=== PATIENT | male | born 1985 | race Caucasian/White ===

== ENCOUNTER 2018-06-14 14:45 | Emergency (ER) | payer OTHER ==
[2018-06-14 14:46] VITALS: BMI 26.6
[2018-06-14 15:32] VITALS: BP 112/70; PULSE 108; RESP 19; TEMP 98.7; O2SAT 96
--- NOTE | 2018-06-14 16:18 | ED PDOC ---
HPI: CCC, URI, Sore Throat Time Seen by Provider: 06/14/18 15:46 Chief Complaint (Nursing): ENT Problem Chief Complaint (Provider): continued left ear pain History Per: Patient History/Exam Limitations: no limitations Onset/Duration Of Symptoms: Days Current Symptoms Are (Timing): Still Present Additional Complaint(s): 33 yo male with no medical problems presents with left ear pain x 3 days. Pt was seen by PMD yesterday and given motrin 800mg (which he lat took at 1pm) and amoxicillin (which he took 2 tabs, last night and this morning). Pt reports continued pain. Pt denies fever/chills. Denies change in hearing. Past Medical History Reviewed: Historical Data, Nursing Documentation, Vital Signs Vital Signs: Last Vital Signs Temp 98.7 F 06/14/18 15:29 Pulse 108 H 06/14/18 15:29 Resp 19 06/14/18 15:29 BP 112/70 06/14/18 15:29 Pulse Ox 96 06/14/18 15:29 - Medical History PMH: No Chronic Diseases - Surgical History Surgical History: No Surg Hx - Family History Family History: States: Unknown Family Hx - Living Arrangements Living Arrangements: With Family - Social History Current smoker - smoking cessation education provided: No - Immunization History Hx Tetanus Toxoid Vaccination: No Hx Influenza Vaccination: No Hx Pneumococcal Vaccination: No - Home Medications Home Medications: Ambulatory Orders Medication Instructions Recorded Ibuprofen [Motrin Tab] 1 tab PO PRN PRN 03/20/15 Naproxen [Naprosyn] 500 mg PO BID #20 tab 04/24/15 traMADol/Acetaminophen [Ultracet 1 tab PO Q8 PRN #20 tab 04/24/15 325 MG-37.5 MG] Ciprofloxacin/Dexamethasone 4 drop .ROUTE BID #1 bottle 06/14/18 [Ciprodex 0.3%-0.1% 7.5 Ml] - Allergies Allergies/Adverse Reactions: Allergies Allergy/AdvReac Type Severity Reaction Status Date / Time No Known Allergies Allergy Verified 04/24/15 13:20 Review of Systems ROS Statement: Except As Marked, All Systems Reviewed And Found Negative Constitutional: Negative for: Fever, Chills ENT: Positive for: Ear Pain Physical Exam - Reviewed Nursing Documentation Reviewed: Yes Vital Signs Reviewed: Yes - Physical Exam Appears: Positive for: Well, Non-toxic, No Acute Distress Head Exam: Positive for: ATRAUMATIC, NORMAL INSPECTION, NORMOCEPHALIC Skin: Positive for: Normal Color, Warm, DRY Eye Exam: Positive for: Normal appearance ENT: Positive for: Other ((+) pinna pull and tragel tug on the left, (+) edema of the external auditory canalce left ). Negative for: Normal ENT Inspection Neck: Positive for: Normal, Painless ROM Respiratory: Negative for: Accessory Muscle Use, Respiratory Distress Gastrointestinal/Abdominal: Positive for: Normal Exam, Soft Back: Positive for: Normal Inspection Extremity: Positive for: Normal ROM Neurologic/Psych: Positive for: Alert, Oriented - ECG O2 Sat by Pulse Oximetry: 96 Disposition - Clinical Impression Clinical Impression: Otitis externa - Patient ED Disposition Is Patient to be Admitted: No - Disposition Referrals: Marquise Gong MD [Primary Care Provider] - Disposition: Routine/Home Disposition Time: 16:19 Condition: STABLE Prescriptions: Ciprofloxacin/Dexamethasone [Ciprodex 0.3%-0.1% 7.5 Ml] 4 drop .ROUTE BID #1 bottle Instructions: Outer Ear Infection
== END 2018-06-14 16:54 | disposition home or self-care (01) ==
LOC: H.ER 14:45 → SUPCPDRO 14:45 → H.ER 16:54
DX: H60.92 Unspecified otitis externa, left ear (principal)

== ENCOUNTER 2018-10-29 07:33 | Emergency (ER) | payer OTHER ==
[2018-10-29 07:39] VITALS: BMI 31.9
[2018-10-29 07:40] VITALS: BP 124/74; PULSE 87; RESP 20; TEMP 98.6
[2018-10-29 07:59] VITALS: O2SAT 98
[2018-10-29] MEDS ORDERED: guaiFENesin-DM 600-30 mg ER Tab PO STA (08:22)
--- NOTE | 2018-10-29 08:22 | ED PDOC ---
HPI: CCC, URI, Sore Throat Time Seen by Provider: 10/29/18 08:17 Chief Complaint (Nursing): ENT Problem Additional Complaint(s): 33 yo male patient w/o relevant PMH present to the ER complaining of sore throat since 3 days ago, associated subjective fever and dry cough since last night. Patient did not take temperature at home. Otherwise he denies nausea, vomiting, sob, abdominal or chest pain, no bodyaches, diarrhea. Patient denies also denies sick contacts or recent travel outside country. PMD: Dr Marquise Gong Past Medical History Vital Signs: Last Vital Signs Temp 98.6 F 10/29/18 07:39 Pulse 87 10/29/18 07:39 Resp 20 10/29/18 07:39 BP 124/74 10/29/18 07:39 Pulse Ox 98 10/29/18 07:56 - Medical History PMH: No Chronic Diseases - Surgical History Surgical History: No Surg Hx - Family History Family History: States: Unknown Family Hx - Social History Current smoker - smoking cessation education provided: No Alcohol: None Drugs: Denies - Immunization History Hx Tetanus Toxoid Vaccination: No Hx Influenza Vaccination: No Hx Pneumococcal Vaccination: No - Home Medications Home Medications: Ambulatory Orders Medication Instructions Recorded Ibuprofen [Motrin Tab] 1 tab PO PRN PRN 03/20/15 Naproxen [Naprosyn] 500 mg PO BID #20 tab 04/24/15 traMADol/Acetaminophen [Ultracet 1 tab PO Q8 PRN #20 tab 04/24/15 325 MG-37.5 MG] Ciprofloxacin/Dexamethasone 4 drop .ROUTE BID #1 bottle 06/14/18 [Ciprodex 0.3%-0.1% 7.5 Ml] Ibuprofen [Ibu] 400 mg PO Q6H 7 Days #30 tablet 10/29/18 Phenylephrine/Dm/Acetaminop/GG 177 ml PO Q4H #1 liquid 10/29/18 [Mucinex Epid-Ztl-Otcixrysrf Lq] - Allergies Allergies/Adverse Reactions: Allergies Allergy/AdvReac Type Severity Reaction Status Date / Time No Known Allergies Allergy Verified 04/24/15 13:20 Review of Systems ROS Statement: Except As Marked, All Systems Reviewed And Found Negative Physical Exam - Reviewed Vital Signs Reviewed: Yes - Physical Exam Appears: Positive for: No Acute Distress Head Exam: Positive for: NORMAL INSPECTION Skin: Negative for: Rash ENT: Negative for: Pharyngeal Erythema, Tonsillar Exudate, Tonsillar Swelling Cardiovascular/Chest: Positive for: Regular Rate, Rhythm. Negative for: Tachycardia Respiratory: Positive for: Normal Breath Sounds. Negative for: Rales, Wheezing Gastrointestinal/Abdominal: Positive for: Soft. Negative for: Tenderness, Distended Neurologic/Psych: Positive for: lightout examiner II-XII, Oriented - ECG O2 Sat by Pulse Oximetry: 98 - Progress ED Course And Treament: Afebrile Ibuprofen 400 mg once for pain Mucinex 1 tab PO once Disposition - Clinical Impression Clinical Impression: Upper respiratory infection, viral, Throat pain - Patient ED Disposition Is Patient to be Admitted: No - Disposition Referrals: Marquise Gong MD [Staff Provider] - Disposition: Routine/Home Disposition Time: 08:18 Condition: STABLE Additional Instructions: f/u with Dr Gong in 3 days Drink plenty of fluids Ibuprofen q6h for pain and fever Mucinex PO for cough Return if worsening or new sx. Prescriptions: Ibuprofen [Ibu] 400 mg PO Q6H 7 Days #30 tablet Phenylephrine/Dm/Acetaminop/GG [Mucinex Uqmp-Zrh-Eseakjnqgp Lq] 177 ml PO Q4H #1 liquid Instructions: Sore Throat, Adult (DC), Viral Upper Respiratory Infection, Adult (DC) Forms: [employer] (Kazakh)
== END 2018-10-29 08:50 | disposition home or self-care (01) ==
LOC: H.ER 07:33
DX: J02.9 Acute pharyngitis, unspecified (principal); J06.9 Acute upper respiratory infection, unspecified

== ENCOUNTER 2018-12-30 01:02 | Emergency (ER) | payer SELFPAY ==
[2018-12-30 01:02] VITALS: BMI 31.9
[2018-12-30 01:24] VITALS: BP 114/73; PULSE 80; RESP 16; TEMP 98.7; O2SAT 98
--- NOTE | 2018-12-30 02:46 | ED PDOC ---
HPI: General Adult Time Seen by Provider: 12/30/18 02:05 Chief Complaint (Nursing): ENT Problem Chief Complaint (Provider): blood in mouth History Per: Patient History/Exam Limitations: no limitations Onset/Duration Of Symptoms: Days (2) Current Symptoms Are (Timing): Still Present Additional Complaint(s): 33 y/o male presents for evaluation of "blood in mouth" x 2 days. Patient states he noticed blood on the roof of his mouth today. Denies known injury, pain, difficulty speaking/swallowing, sore throat. Past Medical History Reviewed: Historical Data, Nursing Documentation, Vital Signs Vital Signs: Last Vital Signs Temp 98.7 F 12/30/18 01:22 Pulse 80 12/30/18 01:22 Resp 16 12/30/18 01:22 BP 114/73 12/30/18 01:22 Pulse Ox 98 12/30/18 01:22 - Medical History PMH: No Chronic Diseases - Surgical History Surgical History: Hernia Repair - Family History Family History: States: Unknown Family Hx - Immunization History Hx Tetanus Toxoid Vaccination: No Hx Influenza Vaccination: No Hx Pneumococcal Vaccination: No - Home Medications Home Medications: Ambulatory Orders Medication Instructions Recorded Ibuprofen [Motrin Tab] 1 tab PO PRN PRN 03/20/15 Naproxen [Naprosyn] 500 mg PO BID #20 tab 04/24/15 traMADol/Acetaminophen [Ultracet 1 tab PO Q8 PRN #20 tab 04/24/15 325 MG-37.5 MG] Ciprofloxacin/Dexamethasone 4 drop .ROUTE BID #1 bottle 06/14/18 [Ciprodex 0.3%-0.1% 7.5 Ml] Ibuprofen [Ibu] 400 mg PO Q6H 7 Days #30 tablet 10/29/18 Phenylephrine/Dm/Acetaminop/GG 177 ml PO Q4H #1 liquid 10/29/18 [Mucinex Wmcu-Tzu-Sfvjavonoy Lq] - Allergies Allergies/Adverse Reactions: Allergies Allergy/AdvReac Type Severity Reaction Status Date / Time No Known Allergies Allergy Verified 04/24/15 13:20 Review of Systems ROS Statement: Except As Marked, All Systems Reviewed And Found Negative ENT: Positive for: Other (blood in mouth) Physical Exam - Reviewed Nursing Documentation Reviewed: Yes Vital Signs Reviewed: Yes - Physical Exam Appears: Positive for: Well, Non-toxic, No Acute Distress Head Exam: Positive for: ATRAUMATIC, NORMAL INSPECTION, NORMOCEPHALIC Skin: Positive for: Normal Color Eye Exam: Positive for: Normal appearance ENT: Positive for: TM Is/Are (clear bilaterally), Other (small blood blister with surrounding ecchymosis noted soft palate. Uvula midline. Airway patent). Negative for: Pharyngeal Erythema, Tonsillar Exudate, Tonsillar Swelling Cardiovascular/Chest: Positive for: Regular Rate, Rhythm Respiratory: Positive for: Normal Breath Sounds Extremity: Positive for: Normal ROM Neurologic/Psych: Positive for: Alert, Oriented (x3) - ECG O2 Sat by Pulse Oximetry: 98 - Progress ED Course And Treament: Patient educated on findings, given reassurance will self-resolve Advised Tylenol/Ibuprofen PRN pain Follow up Dentist Return precautions given Disposition - Clinical Impression Clinical Impression: Angina bullosa hemorrhagica - Patient ED Disposition Is Patient to be Admitted: No Counseled Patient/Family Regarding: Diagnosis, Need For Followup - Disposition Disposition: Routine/Home Disposition Time: 02:47 Condition: GOOD Instructions: Blisters Forms: [employer] (Danish) Print Language: SERBIAN
== END 2018-12-30 02:57 | disposition home or self-care (01) ==
LOC: H.ER 01:02
DX: R58 Hemorrhage, not elsewhere classified (principal)